=== PATIENT | female | born 1990 | race African-American/Black ===

== ENCOUNTER 2017-03-24 10:21 | Emergency (ER) | payer SELFPAY ==
[~2017-03-24] VITALS: Ht 180.3 cm; Wt 100.0 kg
[2017-03-24] MEDS ORDERED: HYDROCODONE/ACETAMINOPHEN 5/325MG TABLET PO ONE (12:45)
[2017-03-24] MEDS ORDERED: LIDOCAINE HCL 1% 20ML VIAL (Pyxis) INJ MC ONE (12:45)
[2017-03-24] MEDS ORDERED: LIDOCAINE HCL 4% CREAM 76GM TUBE TP PRN (13:00)
[2017-03-24 14:38] VITALS: BP 140/69
== END 2017-03-24 14:45 | disposition home or self-care (01) ==
LOC: ER 10:45
DX: L02.31 Cutaneous abscess of buttock (principal)
CPT/HCPCS: 10060; 87070; 87205; 99284; J3490

== ENCOUNTER 2017-03-29 16:22 | Emergency (ER) | payer SELFPAY ==
[~2017-03-29] VITALS: Ht 170.2 cm; Wt 100.0 kg
[2017-03-29 16:57] VITALS: BP 133/67
== END 2017-03-29 18:39 | disposition home or self-care (01) ==
LOC: ER 17:36
DX: L02.31 Cutaneous abscess of buttock (principal); I10 Essential (primary) hypertension
CPT/HCPCS: 99282; 99283